=== PATIENT | male | born 1960 | race Caucasian/White ===

== ENCOUNTER 2017-11-07 11:46 | Emergency (ER) | payer SELFPAY ==
[~2017-11-07] VITALS: Ht 172.7 cm; Wt 68.0 kg
[2017-11-07 11:50] VITALS: Ht 172.7 cm; Wt 68.0 kg
[2017-11-07 12:36] VITALS: BP 117/74
== END 2017-11-07 12:37 | disposition home or self-care (01) ==
LOC: ED 11:46
DX: R60.0 Localized edema (principal); M54.5 Low back pain; M25.562 Pain in left knee; M25.561 Pain in right knee
CPT/HCPCS: 83880